=== PATIENT | female | born 1995 | race Caucasian/White ===

== ENCOUNTER 2020-06-02 21:17 | Emergency (ER) | payer OTHER ==
[~2020-06-02] VITALS: Ht 160 cm; Wt 45.4 kg
[2020-06-02] MEDS ORDERED: FAMOTIDINE/PF INJ 20 MG/2 ML VIAL IV ONE ×2 (21:20→21:30)
[2020-06-02] MEDS ORDERED: diphenhydrAMINE HCL 50 MG/ML VIAL ONE (21:20)
[2020-06-02] MEDS ORDERED: methylPREDNISolone SOD SUCC 125 MG/2ML VIAL ONE (21:20)
--- NOTE | 2020-06-02 21:20 | NUR ---
BIBS FOR C/O ITCHY LIPS AND TINGLING SENSATION IN HER MOUTH X 1 HR HAD SOME PEANUTS CONTAINING FOOD BEFORE BUT NO KNOWN ALLERGY;PT AAOX4, -SOB, NAD, VSS, PENDING ER PROVIDER AIMEE
[2020-06-02] MEDS ORDERED: predniSONE 20 MG TABLET ONE ×2 (21:29→21:34)
[2020-06-02] MEDS ORDERED: IV NS 0.9% 1,000 ML BAG IV ONE (21:30)
[2020-06-02] MEDS ORDERED: predniSONE 20 MG TABLET PO ONE (21:30)
[2020-06-02] MEDS ORDERED: EPINEPHRINE (1:1000) MDV 30 MG/30ML VIAL SUBCUT ONE (21:30)
[2020-06-02] MEDS ORDERED: EPINEPHRINE (1:1000) 1 MG/ML AMPUL ONE (21:31)
--- NOTE | 2020-06-02 22:24 | NUR ---
Patient discharged to home in stable condition. Written and verbal after care instructions given. Patient verbalizes understanding of instruction. IV removed. Catheter intact and site benign. Pressure and 4x4 applied to site. No bleeding noted.
[2020-06-02 22:27] VITALS: BP 121/87
== END 2020-06-02 22:27 | disposition home or self-care (01) ==
LOC: ER 21:19
DX: T78.1XXA Other adverse food reactions, not elsewhere classified, initial encounter (principal); Z91.010 Allergy to peanuts; X58.XXXA Exposure to other specified factors, initial encounter
CPT/HCPCS: 96361; 96372; 96374; 99284; J0171 ×2; J1200; J3490; J7040; J7512 ×2; J2930